=== PATIENT | male | born 1950 | race Caucasian/White ===

== ENCOUNTER 2019-03-29 10:16 | Outpatient (CLI) | payer OTHER | END 2019-03-29 17:10 | disposition home or self-care (01) | LOC: TOM 10:16 | DX: R10.84 Generalized abdominal pain (principal) ==

== ENCOUNTER 2019-04-12 06:40 | Day surgery (SDC) | payer OTHER ==
[~2019-04-12 06:40] MED LIST: NEURONTIN300 MG; TAMS0.4C; ZANTAC150 M3
== END 2019-04-12 18:05 | disposition home or self-care (01) ==
LOC: CIR.AMB 06:40
DX: K40.90 Unilateral inguinal hernia, without obstruction or gangrene, not specified as recurrent (principal)